=== PATIENT | female | born 1945 | race African-American/Black ===

== ENCOUNTER 2020-01-03 15:18 | Emergency (ER) | payer OTHER, SELFPAY ==
--- NOTE | 2020-01-03 15:21 | ED.GENADULT ---
HPI - General Adult General Chief complaint: Upper Respiratory Infection Stated complaint: Congestion Time Seen by Provider: 01/03/20 15:21 Source: patient Mode of arrival: ambulatory Limitations: no limitations History of Present Illness HPI narrative: 74-year-old female patient presents the [facility] with complaints of cold symptoms and congestion for the past 3 to 4 days. Patient denies any fevers or pain to the ears. Patient states she has had a little bit of a stuffy nose but denies any sore throat. Patient states she every once while she does have a cough. Denies any chest pain or shortness of breath. Denies any abdominal pain, nausea, vomiting or diarrhea. Patient states she has been taking [id number] Robitussin and Benadryl for her symptoms. Patient also requesting to have her blood pressure medications refilled. Patient states she did has an appoint with her primary doctor but it is not until the end of the month. Patient unknown of what her blood pressure medications are. Related Data Home Medications Medication Instructions Recorded Confirmed No Home Medications 01/03/20 01/03/20 Allergies Allergy/AdvReac Type Severity Reaction Status Date / Time ibuprofen Allergy Rash Verified 01/03/20 15:46 Review of Systems Review of Systems: Narrative: CONSTITUTIONAL: Denies fever, chills, or sweats. EYES: Denies visual changes, redness, or discharge. ENT: Positive rhinorrhea, congestion, denies throat, or otalgia. CARDIOVASCULAR: Denies chest pain, palpitations, or edema. RESPIRATORY: Positive mild cough, denies dyspnea. GASTROINTESTINAL: Denies abdominal pain, nausea, vomiting, or diarrhea. GENITOURINARY: Denies dysuria or hematuria. SKIN: Denies rash or itching. MUSCULOSKELETAL: Denies back pain, joint pain, or myalgia. NEUROLOGIC: Denies headache, numbness, or weakness. PSYCHIATRIC: Denies anxiety or depression. PMFSH Comments At the time of my signature I agree with nursing past medical history, surgical, social, and family history. There is no relevant family history pertinent to the presenting complaint. Exam Narrative: Exam Narrative: GENERAL: Well-appearing, well-nourished, and in no acute distress. HEAD: Normocephalic, atraumatic. EYES: PERRLA and EOMI. ENT: Nares clear, no rhinorrhea or epistaxis. Mucous membranes moist. NECK: Supple. No lymphadenopathy CHEST: Clear to auscultation. No respiratory distress. HEART: Regular rate and rhythm. No murmur heard. Normal peripheral pulses. ABDOMEN: Soft, nontender, nondistended, normal active bowel sounds. EXTREMITIES: Normal range of motion. No edema. SKIN: Warm, dry, no rash. NEURO: No focal deficits. Alert and oriented x3. Course Vital Signs Vital signs: Vital Signs Temperature 36.7 C 01/03/20 15:34 Pulse Rate 96 01/03/20 15:34 Respiratory Rate 18 01/03/20 15:34 Blood Pressure 156/65 H 01/03/20 15:34 Pulse Oximetry 100 01/03/20 15:34 Temperature 36.7 C 01/03/20 15:34 Pulse Rate 96 01/03/20 15:34 Respiratory Rate 18 01/03/20 15:34 Blood Pressure 156/65 H 01/03/20 15:34 Pulse Oximetry 100 01/03/20 15:34 Vital signs reviewed. The patient has been informed that they may have pre-hypertension or Hypertension based on a BP reading in the department. I recommend that the patient call the primary care provider listed on their discharge instructions or a physician of their choice this week to arrange follow up for further evaluation of possible pre-hypertension or Hypertension Medical Decision Making Differential Diagnosis Differential Diagnosis: Differential diagnosis: Allergic rhinitis, chronic sinusitis, tonsillitis, acute sinusitis, infectious mononucleosis, seasonal influenza, pertussis, diphtheria, meningococcal disease, viral syndrome, viral bronchitis, RSV. Notified patient that since she does have an appointment with her primary doctor at the end of the month I encouraged her to call his office and see if
[2020-01-03 15:34] VITALS: BP 156/65; PULSE 96; RESP 18; TEMP 36.7; O2SAT 100
--- NOTE | 2020-01-03 15:58 | PC.NURSE ---
at 1544 called [facility] for bp medication information. pt requested refills but did not know information.
== END 2020-01-03 16:02 | disposition home or self-care (01) ==
PROVIDERS: Emergency Provider Nurse Practitioner Family
DX: J06.9 Acute upper respiratory infection, unspecified (principal); I10 Essential (primary) hypertension
CPT/HCPCS: 99201; G0463